=== PATIENT | male | born 1975 | race Caucasian/White ===

== ENCOUNTER 2020-03-20 12:43 | Outpatient (CLI) | payer OTHER, SELFPAY ==
--- NOTE | ~2020-03-20 | XR_ITS ---
EXAMINATION: XR sm joint inject/asp w image DATE: 03/20/2020 14:25 INDICATION: Osteoarthritis of right first carpometacarpal joint. TECHNIQUE: A time-out was performed to verify the patient's name, date of , and procedure to b e performed. The procedure including the risks, benefits, and alternatives was discussed with the pat ient. Risks discussed included bleeding and infection. The patient understood the risks and agreed to proceed. The skin overlying the right first carpometacarpal joint was prepped and draped in usual s terile fashion. Anesthetic was administered with 1% lidocaine subcutaneously. A 23 G needle was adv anced under fluoroscopic guidance into the joint. Subsequently, injectate consisting of 0.8 mL 6 mg/m L betamethasone was instilled. The needle was removed and the entry site was cleaned and dressed. T here were no immediate complications. Fluoroscopy exposure time was 0.1 minutes. The total number of images was 1. FINDINGS: Real-time fluoroscopy demonstrates the needle in the right first carpometacarpal joint. Pat ient's pain prior to procedure: 7-8. Patient's pain following the procedure: -12/19. IMPRESSION: 1. Right first carpometacarpal joint injection of steroid with decrease in the patient's presenting p ain. Reviewed, dictated and finalized at location A. IMPRESSION: 1. Right first carpometacarpal joint injection of steroid with decrease in the patient's presenting pain.
== END 2020-03-20 12:44 | disposition home or self-care (01) ==
PROVIDERS: Visit Provider Plastic Surgery
DX: M19.041 Primary osteoarthritis, right hand (principal)
CPT/HCPCS: 20600; 77002; J0702

== ENCOUNTER 2020-04-19 13:56 | Outpatient (RCR) | payer OTHER, SELFPAY | END 2020-07-18 23:59 | disposition home or self-care (01) | LOC: ANHDMC 13:56 | PROVIDERS: Visit Provider Family Medicine | DX: E11.65 Type 2 diabetes mellitus with hyperglycemia (principal); Z71.89 Other specified counseling | CPT/HCPCS: G0108 ==

== ENCOUNTER 2021-12-04 14:14 | Outpatient (CLI) | payer OTHER, SELFPAY ==
[2021-12-04 16:49] LABS: Anion Gap 14 mmol/L (8-16); Blood Urea Nitrogen 14 mg/dL (9-20); Calcium 10.5 mg/dL (8.4-10.2); Carbon Dioxide 25 mmol/L (22-30); Chloride 102 mmol/L (98-107); Estimated Glomerular Filt Rate > 60; Glucose 265 mg/dL (65-110); HDL Direct 54 mg/dL; Potassium 4.7 mmol/L (3.4-5.0); Sodium 141 mmol/L (137-145)
[2021-12-04 17:00] LABS: LDL Cholesterol Direct 100 mg/dL
[2021-12-04 17:18] LABS: MALB Creatinine Ratio 38.5 mg/g (0-30); Microalbumin Urine Random 15.4 mg/L (0-16.7)
== END 2021-12-04 14:15 | disposition home or self-care (01) ==
LOC: ANHWCLAB 14:17
PROVIDERS: Visit Provider Internal Medicine Endocrinology, Diabetes & Metabolism
DX: E11.65 Type 2 diabetes mellitus with hyperglycemia (principal)
CPT/HCPCS: 36415; 80048; 82043; 83718; 83721